=== PATIENT | female | born 1955 | race Caucasian/White ===

== ENCOUNTER 2021-06-29 20:13 | Emergency (ER) | payer SELFPAY ==
[~2021-06-29] VITALS: Ht 160 cm; Wt 90.7 kg
[~2021-06-29 20:13] MED LIST: IBUP200C PO
[2021-06-29 20:34] VITALS: BP 154/90
--- NOTE | 2021-06-29 20:36 | NUR ---
to lobby a/w bed ambulatory
--- NOTE | 2021-06-29 21:10 | NUR ---
seen and examined by IFRAH
[2021-06-29] MEDS ORDERED: KETOROLAC 60 MG/2 ML VIAL IM ONE (21:15)
[2021-06-29] MEDS ORDERED: ACET-8386 PO (22:11)
[2021-06-29] MEDS ORDERED: PRED20TA5 PO (22:11)
[2021-06-29] MEDS ORDERED: IBUP-2213 PO (22:11)
[2021-06-29 22:30] VITALS: BP 154/90
--- NOTE | 2021-06-29 22:30 | NUR ---
swab for novel sent to lab
== END 2021-06-29 22:30 | disposition home or self-care (01) ==
LOC: MED 20:13
DX: U07.1 COVID-19 (principal); F17.210 Nicotine dependence, cigarettes, uncomplicated; J45.909 Unspecified asthma, uncomplicated; Z88.2 Allergy status to sulfonamides
CPT/HCPCS: 71045; 93005; 96372; 99285; J1885; U0003